=== PATIENT | male | born 1990 ===

== ENCOUNTER → 2016-11-06 | Emergency (ER) | payer OTHER ==
[~2016-11-06] MED LIST: ACETAMINOPHEN 325 MG TABLET (FP) ONE; ACETAMINOPHEN 325 MG TABLET (FP) PO ONE; SODIUM CHLORIDE 1,000 ML IV STA
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
[2016-11-06 07:08] VITALS: TEMP 97.6; BMI 25.0
[2016-11-06 07:40] LABS: WHITE BLOOD COUNT 7.4 K/mm3 (4.0-10.0)
[2016-11-06 07:42] LABS: URINE BILIRUBIN Negative (NEGATIVE); URINE BLOOD Trace-intact (NEGATIVE); URINE GLUCOSE (UA) Negative (NEGATIVE); URINE KETONE Negative (NEGATIVE); URINE LEUK ESTERASE Negative (NEGATIVE); URINE NITRITE Negative (NEGATIVE); URINE PROTEIN Negative (NEGATIVE); URINE UROBILINOGEN 0.2 E.U/dl (0.2-1.0)
[2016-11-06 07:46] LABS: BASOPHIL 0.4 % (0-2.0); EOSINOPHIL 0.4 % (0-4.5); MCH 29.5 pg (25.7-33.7); MCHC 33.3 g/dl (32.0-35.9); MEAN CELL VOLUME 88.3 fl (80-96); MEAN PLT VOLUME 9.1 fl (7.5-11.1); NEUTROPHILS 78.2 % (42.8-82.8); PLATELET COUNT 204 K/MM3 (134-434); RDW 12.4 % (11.9-15.9)
[2016-11-06 07:50] LABS: INR 1.15 (0.82-1.09); PROTHROMBIN TIME (PATIENT) 12.5 SEC (10.2-13.0)
[2016-11-06 07:56] LABS: URINE APPEARANCE SL CLOUDY; URINE COLOR YELLOW
[2016-11-06 08:16] LABS: ALBUMIN 4.2 g/dl (3.5-5.0); ALK PHOS 36 U/L (32-92); ANION GAP 8 (8-16); BILIRUBIN,TOTAL 0.4 mg/dl (0.2-1.0); CALCIUM 9.1 mg/dl (8.4-10.2); CO2 29 mmol/L (22-28); CREATININE 0.9 mg/dl (0.6-1.3); GLUCOSE,RANDOM 115 mg/dl (74-106); SGOT/AST 17 U/L (10-42); SGPT/ALT 22 U/L (10-40); TOT PROT 7.3 g/dl (6.4-8.3)
[2016-11-06 10:46] VITALS: BP 111/77; PULSE 73
== END | disposition short-term general hospital (02) ==
LOC: FER 06:56
PROC: 3E0337Z Introduction of Electrolytic and Water Balance Substance into Peripheral Vein, Percutaneous Approach (ICD-10-PCS; principal; 2016-11-06)
DX: S36.113A Laceration of liver, unspecified degree, initial encounter (principal); V46.5XXA Car driver injured in collision with other nonmotor vehicle in traffic accident, initial encounter; W22.11XA Striking against or struck by driver side automobile airbag, initial encounter; Y93.89 Activity, other specified; Y92.410 Unspecified street and highway as the place of occurrence of the external cause
CPT/HCPCS: 36415; 74177-TC; 80053; 80307; 81003; 83605; 83690; 85025; 85610; 99284-25